=== PATIENT | female | born 1950 | race Caucasian/White ===

== ENCOUNTER 2016-12-20 18:14 | Emergency (ER) | payer OTHER ==
--- NOTE | 2016-12-20 18:39 | CPEKG ---
Heart Rate: 62 RR Interval: 968 P-R Interval: 140 QRSD Interval: 72 QT Interval: 408 QTC Interval: 415 P Traer: 49 QRS Traer: 16 T Wave Traer: -3 EKG Severity - NORMAL ECG - EKG Impression: SINUS RHYTHM Electronically Signed By: Janneth Kessler 20-Dec-2016 21:10:05
--- NOTE | 2016-12-20 18:45 | EDPHY ---
H & P Time Seen by Provider: 12/20/16 18:44 HPI/ROS: CHIEF COMPLAINT: Left axillary pain HISTORY OF PRESENT ILLNESS: This patient is a 66-year-old female who presents to the Emergency Department complaining of acute onset sharp left lateral chest pain at 1800 tonight when standing in line at a grocery store checkout. The pain lasted for 2-3 seconds and was then followed by left arm paresthesias that have persisted to the present. She reports that she was carrying heavy boxes this afternoon but denies any neck or back pain. No shortness of breath, leg pain or swelling, or cough. Denies any recent prolonged travel. She had one prior similar episode of pain 2-3 days prior to arrival that subsided on its own and did not recur until tonight. She denies any pertinent medical history. REVIEW OF SYSTEMS: Constitutional: No fever, no chills Eyes: No visual changes ENT: No sore throat Respiratory: No cough, no shortness of breath Cardiac: As in HPI Gastrointestinal: No nausea, no vomiting, no abdominal pain Genitourinary: No hematuria, no dysuria Musculoskeletal: No leg pain or swelling Skin: No rash Neurological: No headache, no numbness, no weakness Psychiatric: No depression Past Medical/Surgical History: Denies Social History: Non-smoker Smoking Status: Never smoked Physical Exam: General Appearance: Alert, pleasant Eyes: Pupils equal and round, no conjunctival pallor or injection ENT, Mouth: Mucous membranes moist Neck: Normal inspection Respiratory: Normal inspection, no chest wall tenderness, Lungs are clear to auscultation; patient points to the left axilla as the origin of her pain Cardiovascular: Regular rate and rhythm Gastrointestinal: Abdomen is soft and non-tender Neurological: A&O, motor 5/5, sensory intact to light touch, normal gait Skin: Warm and dry, no rash Musculoskeletal: Left upper thoracic paraspinous tenderness Extremities: Nontender, no pedal edema Psychiatric: Mood and affect normal Constitutional: Initial Vital Signs Temperature (C) 36.7 C 12/20/16 18:21 Heart Rate 66 12/20/16 18:21 Respiratory Rate 18 12/20/16 18:21 Blood Pressure 144/93 H 12/20/16 18:21 O2 Sat (%) 98 12/20/16 18:21 O2 Delivery Mode Room Air Allergies/Adverse Reactions: erythromycin base [Erythromycin Base] Allergy (Mild, Verified 12/20/16 18:21) Hives codeine [Codeine] Adverse Reaction (Severe, Verified 12/20/16 18:21) Vomiting Home Medications: Medication Instructions Recorded Calcium 08/28/09 Medical Decision Making - Diagnostics EKG Interpretation: EKG interpreted by me reveals normal sinus rhythm, rate 62, no ST/T changes. Interpretation: normal EKG Imaging Results: Chest x-ray independently reviewed by me reveals no acute disease. Imaging: I viewed and interpreted images myself ED Course/Re-evaluation: 66-year-old female presents to the Emergency Department following a brief 2-3 second episode of stabbing left axial chest pain associated with left forearm and hand paresthesias that have persisted to the present, most suspicious for cervical radiculopathy. She does have left upper thoracic paraspinous tenderness on exam but no reproducible chest pain. I doubt cardiac etiology given the brief duration and quality of the patient's pain. Plan for chest x- ray and EKG. Chest x-ray reviewed by me is normal. EKG, as above, is normal. I discussed imaging and EKG results with the patient. I remain suspicious of cervical radiculopathy as the source of her pain. I recommended to her that she follow-up with her PCP for further evaluation; she is agreeable to this. She understands strict customary return precautions and will be discharged home in good condition. Differential Diagnosis: The differential diagnosis for the patient's chest pain included but was not limited to myocardial ischemia, pulmonary embolus, chest wall pain, radiculopathy, pleural inflammation, and pulmonary infectious causes. Departure - Departure Disposition: Home, Routine, Self-Care Clinical Impression: Cervical radiculopathy Chest pain Qualifiers: Chest pain type: unspecified Qualified Code(s): R07.9 - Chest pain, unspecified Condition: Good Instructions: Chest Pain (ED), Cervical Radiculopathy (ED) Additional Instructions: 1. Follow-up with your primary care provider for further evaluation if your pain or numbness persists. 2. Return to the Emergency Department immediately with shortness of breath, pain or swelling to your legs, chest pain that persists for longer than a few seconds, or for other serious concerns. Referrals: Libertad Addison MD [Primary Care Provider] - As per Instructions Report Scribed for: Janneth Kessler Report Scribed by: Piedad Suarez Date of Report: 12/20/16 Time of Report: 18:45 Physician Review and Approval Statement: 12/20/16 18:45 Portions of this note were transcribed by a medical van driver. I personally performed a history, physical exam, medical decision making, and confirmed accuracy of information the transcribed note.
[2016-12-20 19:35] VITALS: BP 141/81; PULSE 59; RESP 16; TEMP 97.9; O2SAT 96
== END 2016-12-20 19:34 | disposition home or self-care (01) ==
DX: M54.12 Radiculopathy, cervical region (principal); R07.9 Chest pain, unspecified

== ENCOUNTER → 2017-01-11 | Outpatient (CLI) | payer OTHER | LOC: FIMAGING 07:36 | PROVIDERS: ATTEND Internal Medicine | DX: Z12.31 Encounter for screening mammogram for malignant neoplasm of breast (principal) | CPT/HCPCS: G0202 ==

== ENCOUNTER → 2018-04-17 | Outpatient (CLI) | payer OTHER, MEDICARE | LOC: FIMAGING 11:15 | PROVIDERS: ATTEND Internal Medicine | DX: Z12.31 Encounter for screening mammogram for malignant neoplasm of breast (principal); R92.8 Other abnormal and inconclusive findings on diagnostic imaging of breast ==

== ENCOUNTER → 2018-04-25 | Outpatient (CLI) | payer OTHER, MEDICARE | LOC: FIMAGING 09:59 | PROVIDERS: ATTEND Internal Medicine | DX: E04.2 Nontoxic multinodular goiter (principal); N63.12 Unspecified lump in the right breast, upper inner quadrant ==

== ENCOUNTER → 2018-05-02 | Outpatient (CLI) | payer OTHER, MEDICARE ==
[~2018-05-02] MED LIST: BUPIVACAINE 0.5% 30 ML SDV ONE; LIDOCAINE 1% 300 MG/30 ML SDV ONE; THROMBIN (BOVINE) 5,000 UNIT VIAL TP ONE
== END ==
LOC: FIMAGING 07:12
PROVIDERS: ATTEND Internal Medicine
DX: R92.8 Other abnormal and inconclusive findings on diagnostic imaging of breast (principal)